=== PATIENT | female | born 1990 | race Caucasian/White ===

== ENCOUNTER 2017-04-29 14:15 | Inpatient (IN) | payer OTHER, SELFPAY ==
[2017-04-29 13:54] VITALS: BMI 41.1
[2017-04-29] MEDS: Lactated Ringers 1,000 ML 50 ML IV (14:55)
[2017-04-29 15:16] LABS: Hematocrit 37.8 % (37-47); Hemoglobin 12.7 g/dl (12.0-15.0); Mean Corp Hgb Conc 33.6 g/gl (32-36); Mean Corpuscular Hgb 29.4 pg (27.0-32.0); Mean Corpuscular Volume 87.5 fL (81-99); Mean Platelet Vol. 9.9 fl (6.2-12.0); Platelet Count 270 K/mm3 (150-450); RBC Distribution Width CV 13.1 % (11.6-14.6); RBC Distribution Width SD 42.4 fl (35.1-43.9); Red Blood Count 4.32 M/mm3 (4.2-5.4); White Blood Count 10.4 K/mm3 (4.4-11.0)
[2017-04-29 15:20] LABS: Scan Indicated on CBC? Y/N NO
[2017-04-29] MEDS: miSOPROStol 25 MCG TABLET VAGINAL ×3 (15:47→23:35)
--- NOTE | 2017-04-29 18:09 | PCM.HP.OB ---
- Problem List (1) Obesity affecting in third trimester Status: Acute (2) IUGR (intrauterine growth restriction) affecting care of mother Status: Acute Qualifiers: Fetus number: single or unspecified fetus Trimester: third trimester Qualified Code(s): O36.5930 - Maternal care for other known or suspected poor growth, third trimester, not applicable or unspecified History Date of Admission: 04/29/17 Final ANALISA: 05/17/17 Final ANALISA Source: US <20 weeks Gestational age: 37 Weeks and 3 Days History of this : Patient is a 26 y/o @ 37.3 weeks by 1st trimester u/s that presented to office today for scheduled DARLINE visit. By Jake's assessment baby felt small on exam, 3rd trimester growth ultrasound ordered and baby was found to be <1% growth with evidence of IUGR. NST performed in office, Category II FHT noted. Consultation with MFM Dr. Josse kennedy, decision made to progress with IOL for presumed IUGR. Pertinent Past Medical History: course complicated by nausea/vomiting in the 1st trimester - resolved with use of Vitamin B6 Otherwise uncomplicated course See [facility] Record Allergies No Known Allergies Allergy (Verified 04/29/17 13:55) Current Medications Acetaminophen (Tylenol) 325 - 650 mg PO Q4H PRN PRN PRN Reason: PAIN OR FEVER >100.4F Al Hydroxide/Mg Hydroxide (Mylanta Ii) 15 - 30 ml PO Q4H PRN PRN PRN Reason: INDIGESTION Citric Acid/Sodium Citrate (Bicitra) 30 ml PO UD PRN Lactated Ringer's () 1,000 mls @ 50 mls/hr IV .Q20H KARIE Last Admin: 04/29/17 14:55 Dose: 50 mls/hr Misoprostol (Cytotec) 25 mcg VAGINAL Q4H KARIE Stop: 04/30/17 11:31 Last Admin: 04/29/17 15:47 Dose: 25 mcg Nalbuphine HCl (Nubain) 5 - 10 mg IV Q3H PRN PRN PRN Reason: PAIN (4-10/10) Ondansetron HCl (Zofran) 4 mg IV Q8H PRN PRN PRN Reason: NAUSEA Promethazine HCl (Phenergan (Ll)) 6.25 - 12.5 mg IV Q4H PRN PRN; Protocol PRN Reason: IF NAUSEA PERSISTS Sodium Chloride () 5 - 15 ml IV UD KARIE Smoking Status: Never smoker Alcohol: None Drug Use: none Number of Fetus(es): 1 Review of Systems Constitutional: Denies: Chills, Fever, Weight Change HEENT: Denies: Head Aches, Sinus Congestion, Sinus Drainage Cardiovascular: Denies: Chest Pain, Palpitations Respiratory: Denies: Cough, Shortness of breath at rest, Sputum production Gastrointestinal: Denies: Abdominal Pain, Nausea, Vomiting Genitourinary: Denies: Dysuria Gynecological: Denies: Vaginal bleeding, Vaginal discharge Musculoskeletal: Denies: Joint Pain, Joint Tenderness Skin: Denies: Rash, Wounds Neurological: Denies: Numbness, Tingling, Focal weakness Psychiatric: Denies: Anxiety, Depression, Homicidal Ideations, Suicidal Ideations Hematologic/ Lymphatic: Denies: Easy Bruising, Easy Bleeding Physical Exam Vitals: See RN note for vital signs - VSS, afebrile FHT baseline 140, moderate variability, + accels currently (On admission Baseline FHT 140, minimal to moderate variability with rare mild variable decels lasting <15-30 seconds, few accels) Ctx uterine irritability noted General: Alert, Oriented x3, No apparent distress Cardiovascular: Regular rate, Regular Rhythm Lungs: Clear to auscultation Abdomen: Bowel Sounds Present, Gravid Extremities:: No edema Estimated gestational size: Small for gestational age Presentation: Cephalic Cervix Dilation (cm): 0 - Per RN exam at admission Station: -3 Effacement (%): 60 Assessment/Plan Active and Suspected Problems Obesity affecting in third trimester (Acute) IUGR (intrauterine growth restriction) affecting care of mother (Acute) A: 26 y/o @ 37.3 weeks, Category I-II FHT, IOL for suspected IUGR P: 1) Admit patient, IOL consent signed with provider 2) PV cytotec given per protocol to help ripen cervix 3) Reassess SVE after 4 hours of 1st dose of Cytotec to assess ability to place vergara catheter with pitocin for additional cervical ripening 4) Encourage PO hydration and position changes 5) Dr. Looney OB back-up notified of admission and is in agreement with plan Amanda Francois CNM
--- NOTE | 2017-04-29 19:51 | PCM.PN.BLA ---
Progress Note S: Patient sitting up in bed denying any complaints or concerns at this time. at bedside providing support for patient. O: VSS, Afebrile FHT baseline 140, moderate variability, + accels, rare mild variable decels with angel to 115-120 x 10-30 seconds Ctx uterine irritability noted SVE = 1/60/-2, midposition, moderate firmness A: 26 y/o @ 37.3 weeks, IOL for IUGR with EFW < 1%, Category I-II FHT P: 1) 2nd dose cytotec placed by this provider for additional cervical ripening 2) Reassess cervix in 4 hours or PRN, consider placement of vergara catheter with low dose pitocin with next exam if cervix is softer 3) Dr. Looney updated of patient status Amanda IRENE
[2017-04-29] MEDS: Acetaminophen 325 MG Tablet PO (23:15)
[2017-04-30] VITALS (15 sets, daily range): BP systolic 101–127; BP diastolic 56–81; PULSE 65–73; RESP 16–18; TEMP 36.5–37; O2SAT 95–100
--- NOTE | 2017-04-30 03:32 | PCM.PN.BLA ---
Progress Note S: 3rd dose of PV Cytotec was placed around 11:30pm, baby had a Category I FHT at that time. Page received from nursing staff to evaluate heart tones, repetitive mild to moderate decelerations noted with perceived decreased variability noted by nursing staff. CNM to evaluate tracing. O: VSS, Afebrile FHT baseline 150, mild to moderate variability, + accels, occasional mild to moderate variable decel with angel to 110-130 auscultated x 30 seconds with spontaneous recovery following 500cc fluid bolus and position changes. Copious FM can be heard during external monitoring. Ctx uterine irritability noted on tocometer, per patient more regular cramping q 4-5 minutes that she rates a 3-4/10 SVE = 2/70/-1 now during ctx, otherwise station -2 A: 26 y/o @ 37.4 weeks, IOL for suspected IUGR (EFW <1%), Category II FHT P: 1) Will hold cytotec dosing at this time and expectantly manage patient currently 2) With resolution of variable decels will consider starting IV pitocin, anticipate AROM with placement of internal monitoring once able to place. 3) Encourage position changes - H+K, side-lying to help resolve variable decels Amanda IRENEM
[2017-04-30] MEDS: Lactated Ringers 1,000 ML 50 ML IV ×2 (03:34→09:33)
--- NOTE | 2017-04-30 06:59 | PCM.PN.BLA ---
Progress Note S: Patient currently Rt. side-lying position - patient positions have been shifted frequently back to H+K for improvement/resolution of mild to moderate variable decels. Patient reports cramping q 4 minutes. remains at bedside providing support for patient. O: VSS, Afebrile FHT baseline 150 mild to moderate variability, + accels , occasional variable decels with angel to 100-120 with spontaneous recovery. Decels occuring most often during a palpable contraction Ctx few noted on tocometer, mild to moderate by palpation q 4-5 minutes SVE = deferred A: 26 y/o @ 37.4 weeks, IOL for Suspected IUGR (EFW <1%), Category II FHT P: 1) Report given to Anuel Looney MD oncoming physician 2) Anticipate placement of internal monitors to help monitor baby more closely with possibility of starting amnioinfusion 3) Consider pitocin augmentation per protocol to help progress labor Amanda Francois CNM
--- NOTE | 2017-04-30 08:03 | PCM.PN.BLA ---
Progress Note Addendum: Decision made to reevaluate cervix, IUPC and FSE placed. Cervix still /, AROM for scant clear fluid. Anticipate will start Amnioinfusion at this time for repetitive variable decels. Category II FHT continues at this time. Dr. Looney appraised of status. Amanda Francois [facility]
--- NOTE | 2017-04-30 08:07 | PN_ITS ---
Progress Note Addendum: Decision made to reevaluate cervix, IUPC and FSE placed. Cervix still /, AROM for scant clear fluid. Anticipate will start Amnioinfusion at this time for repetitive variable decels. Category II FHT continues at this time. Dr. Looney appraised of status. Amanda Francois [facility]
[2017-04-30] MEDS: Amnioinfusion- 0.9% NS 1,000 ML IV.SOLN. INTRA-UTER (08:26)
--- NOTE | 2017-04-30 08:32 | PCM.PN.BLA ---
Progress Note S: Patient denies complaints O: cvx - deferred d/t recent exam fhts 150 with minimal to moderate variability, occ accels, variables tocos - Q2-4 minutes A&P: continue amnioinfusion plan to start pitocin
[2017-04-30] MEDS: Oxytocin 30 units/NS 500 ml 30 UNITS/500 ML IV.SOLN IV (09:46)
[2017-04-30] MEDS: Ondansetron 4 MG/2 ML Vial IV (12:08)
--- NOTE | 2017-04-30 13:24 | PCM.PN.BLA ---
Progress Note Patient comfortable with epidural cvx /-2 fhts 150 with mod variability, variables, occ accels category 2 tracing tocos Q2-3 min A&P: cont pit & will increase when able If unable to obtain adequate labor & fetus tolerate it then will proceed with primary , patient aware & agrees with plan
[2017-04-30] MEDS: Sodium Citrate/Citric Acid 30 ML UDC PO (14:01)
[2017-04-30] MEDS: Oxytocin 30 units/NS 500 ml 30 UNITS/500 ML IV.SOLN 167 UNITS IV (14:24)
[2017-04-30] MEDS: Ketorolac 30 MG/ML Syringe IV ×2 (15:00→20:57)
--- NOTE | 2017-04-30 15:18 | OP.PCM_ITS ---
Delivery Final ANALISA: 05/17/17 Gestational age: 37 Weeks and 4 Days Indications: IUGR Inability of fetus to tolerate labor Indications for : Nonreassuring Status Description of Procedure: Patient taken to OR where epidural anesthesia was dosed. She was prepped and draped in normal sterile fashion in a dorsal lithotomy position with a leftward tilt. After ensuring adequacy of anesthesia the Pfannensteil skin incision was made and carried through to the underlying fascia with a bovie. The fascia was incised in the midline and carried laterally with the Patel scissors. The rectus muscles were in the midline and the peritoneum was entered bluntly. The bladder flap was dissected down carefully with the Metzenbaum scissors and blunt dissection. The uterus was incised in a transverse fashion and then incision extended with cephalocaudad traction. The fetus was vertex and the head was brought to the incision in the flexed position. With good fundal pressure the head easily delivered. Gentle traction placed on head to allow delivery of anterior & posterior shoulders. No excess traction placed on head. The body delivered easily. The 3VC cord was clamped and cut after 1 minute delay and the infant handed off to the waiting RN. The placenta was delivered w/ gentle traction and fundal massage and the uterus was exteriorized and cleared of all clots and debris. The uterine incision was closed with 1 vicryl suture in a running locked fashion. The bovie was used to further obtain further hemostasis of the uterine incision. A second imbricating layer of monocryl was placed. The uterus was returned to the peritoneal cavity. The pelvis was irrigated & then cleared of all clots and debris. The uterine incision was reexamined and found to be hemostatic. Some charlette was placed over the uterine incision due to the denuded areas. The parietal peritoneum was reapproximated with running 1 vicryl suture. The fascia was closed with looped PDS suture in a running standard fashion. The subcutaneous tissue was examined & any bleeding bovie cauterized. The subcutaneous tissue was reapproximated with 3-0 vicryl suture. The skin was closed in a subcuticular fashion by the TURNTABLE ENGINEER with me present in the labor and delivery suite. I performed the remainder of the procedure w/ assistance. FINDINGS: normal maternal uterus & adnexa; small placenta & thin umbilical cord Amniotic Membrane Rupture Type: Artificial Amniotic Fluid Description: Clear Placenta Disposition: [facility] Drain: Mendez to straight drain Fluids Replaced: 500ml Cord Entanglement: None Cord Vessel Description: 3 Vessels Esitmated Blood Loss (ml): 800ml (1 minute): 8 (5 minute): 9 Delayed cord clamping: Yes Pre-op Antibiotic Given: Ancef 2 grams IV x1
--- NOTE | 2017-04-30 15:40 | NURSING ---
Epidural cath removd per elizabeth glass - blue tip intact
[2017-04-30] MEDS: Lactated Ringers 1,000 ML 100 ML IV (17:19)
[2017-05-01] VITALS (13 sets, daily range): BP systolic 102–112; BP diastolic 48–70; PULSE 62–78; RESP 16–20; TEMP 36.1–36.6; O2SAT 97–100
[2017-05-01] MEDS: Ketorolac 30 MG/ML Syringe IV ×3 (02:49→14:33)
[2017-05-01] MEDS: Lactated Ringers 1,000 ML 100 ML IV (02:49)
[2017-05-01 04:53] LABS: Hematocrit 34.4 % (37-47); Hemoglobin 11.5 g/dl (12.0-15.0); Mean Corp Hgb Conc 33.4 g/gl (32-36); Mean Corpuscular Hgb 29.6 pg (27.0-32.0); Mean Corpuscular Volume 88.4 fL (81-99); Mean Platelet Vol. 9.8 fl (6.2-12.0); Platelet Count 212 K/mm3 (150-450); RBC Distribution Width CV 13.3 % (11.6-14.6); RBC Distribution Width SD 42.4 fl (35.1-43.9); Red Blood Count 3.89 M/mm3 (4.2-5.4); White Blood Count 12.3 K/mm3 (4.4-11.0)
[2017-05-01 04:56] LABS: Scan Indicated on CBC? Y/N NO
--- NOTE | 2017-05-01 08:22 | PCM.PN.OB ---
Patient Problems: Active and Suspected Problems Obesity affecting in third trimester (Acute) IUGR (intrauterine growth restriction) affecting care of mother (Acute) Subjective: No complaints - Physical Exam General: Alert, Oriented x3 Abdomen: Soft, Non Tender, Non-Distended - ff mid & below umb; incision - bandage c/d/i Extremities: No Calf Tenderness Vital Signs Temp Pulse Resp BP Pulse Ox 97.8 F 70 18 106/55 L 97 05/01/17 04:14 05/01/17 06:41 05/01/17 06:41 05/01/17 04:14 05/01/17 06:41 Oxygen Delivery Method Room Air Weight: 240 lb Body Mass Index (BMI) 41.1 Intake and Output for Last 24 Hours 04/29/17 04/30/17 05/01/17 23:59 23:59 23:59 Intake Total 730 / 730 3089 / 3089 679 / 679 Output Total 850 / 850 2050 / 2050 550 / 550 Balance -120 / -120 1039 / 1039 129 / 129 Laboratory Tests Past 24 Hrs 05/01/17 04:25 WBC 12.3 H RBC 3.89 L Hgb 11.5 L Hct 34.4 L MCV 88.4 MCH 29.6 MCHC 33.4 RDW 13.3 RDW Differential 42.4 Plt Count 212 MPV 9.8 Assessment/Plan Active and Suspected Problems Obesity affecting in third trimester (Acute) IUGR (intrauterine growth restriction) affecting care of mother (Acute) POD#1 Heme - HDS, cbc reviewed IF - AF, no signs/symptoms infection - d/c vergara GI - ADAT Routine care
--- NOTE | 2017-05-01 08:26 | DCINST_ITS ---
Discharge Diet: No Restrictions Discharge Activity: May not drive while taking narcotic pain medications., May Shower May resume sexual activity in: 4-6 weeks Weight Bearing Status: Weight bearing as tolerated Call your doctor if your incision/area has: Continuous Slow Oozing, Sudden Increased Bleeding, Increased Pain/ Swelling, Increased Redness, Foul Smelling Discharge, Swelling at the incision site Additional Instructions: If you experience any of the following, contact your healthcare provider. * Bleeding that soaks a pad every hour for 2 hours * Fever 100.4 or higher * Unrelieved incision or abdominal pain * Swelling, redness, discharge or bleeding from your incision or episiotomy site * Your incision begins to separate * Problems urinating (including inability to urinate or burning while urinating) . * Visual changes * Severe headache * Flu-like symptoms * Pain or redness in one of both of your breasts * Pain, warmth, tenderness or swelling in your legs, especially the calf area * Frequent nausea and vomiting * Symptoms of depression or anxiety If you experience any of the following, call 911 or go to the nearest Emergency Room. * Chest pain * Problems breathing * Seizure activity * Partial or complete paralysis of a body part, slurred speech, weakness or drooping of the face, or a sudden inability to walk or hold your balance Allergies/Adverse Reactions: Allergies No Known Allergies Allergy (Verified 04/29/17 13:55) Medications to take at Discharge Vits [Prenatabs FA ] 1 tablet PO DAILY 04/29/17 Oxycodone HCl/Acetaminophen [Percocet 5/325] 1 tab PO Q6H PRN PRN 7 Days #28 tab 05/01/17 The following prescriptions were given: Oxycodone HCl/Acetaminophen [Percocet 5/325] 1 tab PO Q6H PRN PRN 7 Days #28 tab PRN Reason: Pain Follow-Up: Call to make an appointment with your doctor for an incision check in 1-2 weeks. You will also need a 6 week post- follow up appointment. Primary Care Physician: Care Physician,No Primary [Primary Care Provider] -
[2017-05-01] MEDS: 0.9% Saline Lock 10 ML Syringe IV ×2 (09:15→14:34)
[2017-05-01] MEDS: Senna/Docusate Sodium 1 Tablet PO (11:33)
[2017-05-01] MEDS: oxyCODONE 5 MG Tablet PO (20:15)
[2017-05-01] MEDS: Ibuprofen 600 MG Tablet PO (21:08)
[2017-05-02 02:49] VITALS: BP 124/64; PULSE 80; RESP 16; TEMP 36.4; O2SAT 98
[2017-05-02] MEDS: oxyCODONE 5 MG Tablet PO ×4 (04:47→19:29)
[2017-05-02] MEDS: Ibuprofen 600 MG Tablet PO ×3 (07:45→22:50)
[2017-05-02] MEDS: Senna/Docusate Sodium 1 Tablet PO (07:46)
[2017-05-02 08:16] VITALS: BP 114/64; PULSE 69; RESP 18; TEMP 37.1; O2SAT 97
--- NOTE | 2017-05-02 08:22 | PCM.PN.OB ---
Patient Problems: Active and Suspected Problems Obesity affecting in third trimester (Acute) IUGR (intrauterine growth restriction) affecting care of mother (Acute) Subjective: pain well controlled, average lochia. stacy. regular diet. No N/V. + flatus, no BM - Physical Exam General: Alert, Cooperative, No apparent distress Abdomen: Soft, Non-Distended, Tender - appropriately Extremities: Edema - 1+ Skin: Incision - clean, dry and intact Vital Signs Temp Pulse Resp BP Pulse Ox 98.8 F 69 18 114/64 97 05/02/17 08:16 05/02/17 08:16 05/02/17 08:16 05/02/17 08:16 05/02/17 08:16 Oxygen Delivery Method Room Air Weight: 108.862 kg Body Mass Index (BMI) 41.1 Intake and Output for Last 24 Hours 04/30/17 05/01/17 05/02/17 23:59 23:59 23:59 Intake Total 3089 / 3089 679 / 679 Output Total 2049 / 2049 2550 / 2550 Balance 1039 / 1039 -1871 / -1871 Assessment/Plan Active and Suspected Problems Obesity affecting in third trimester (Acute) IUGR (intrauterine growth restriction) affecting care of mother (Acute) POD#2 doing well pumping, infant in SCN. Likely d/c to hot tomorrow
[2017-05-02 13:38] VITALS: BP 114/78; PULSE 95; RESP 18; TEMP 36.4; O2SAT 98
[2017-05-02 19:40] VITALS: BP 117/78; PULSE 98; RESP 16; TEMP 37.1; O2SAT 99
[2017-05-03 02:30] VITALS: BP 121/78; PULSE 82; RESP 16; TEMP 36.5; O2SAT 97
[2017-05-03] MEDS: oxyCODONE 5 MG Tablet PO ×2 (02:32→14:59)
[2017-05-03] MEDS: Ibuprofen 600 MG Tablet PO ×2 (05:57→12:12)
[2017-05-03 08:00] VITALS: BP 122/72; PULSE 71; RESP 16; TEMP 36.7; O2SAT 97
--- NOTE | 2017-05-03 08:52 | PCM.PN.BLA ---
Progress Note S: Patient sitting up in bed eating breakfast. Patient reports no issues. Incisional pain minimal, patient's pain well controlled and she is not using narcotic pain pills regularly anymore. Patient reports her milk has come in, patient pumping q 3 hours currently as baby in special care nursery due to blood sugar instability. O: VSS, Afebrile Nipples without cracks, blisters, ecchymoses or erythema Abdomen NT x 4 quadrants, Dressing Dry and Intact, FF midline @ 3FB below umbilicus +2/4 reflexes in LE, no edema in LE, negative calf tenderness to palpation scant rubra lochia A: 26 y/o s/p LTCS for FIOL, POD #3, Normal Course P: 1) As baby will be staying in [facility], anticipate discharge of patient today. Hospitality room available. 2) Anticipatory PP teaching done today 3) Patient to remove dressing on POD 4 or 5, instructions for removal provided 4) Post-op follow-up visit with [facility] by 2 weeks PP, and then additional PP visit by 6 week PP. Amanda Francois CNM
--- NOTE | 2017-05-03 09:01 | PN_ITS ---
Progress Note S: Patient sitting up in bed eating breakfast. Patient reports no issues. Incisional pain minimal, patient's pain well controlled and she is not using narcotic pain pills regularly anymore. Patient reports her milk has come in, patient pumping q 3 hours currently as baby in special care nursery due to blood sugar instability. O: VSS, Afebrile Nipples without cracks, blisters, ecchymoses or erythema Abdomen NT x 4 quadrants, Dressing Dry and Intact, FF midline @ 3FB below umbilicus +2/4 reflexes in LE, no edema in LE, negative calf tenderness to palpation scant rubra lochia A: 26 y/o s/p LTCS for FIOL, POD #3, Normal Course P: 1) As baby will be staying in [facility], anticipate discharge of patient today. Hospitality room available. 2) Anticipatory PP teaching done today 3) Patient to remove dressing on POD 4 or 5, instructions for removal provided 4) Post-op follow-up visit with [facility] by 2 weeks PP, and then additional PP visit by 6 week PP. Amanda Francois CNM
--- NOTE | 2017-05-03 10:44 | NURSING ---
Talked with mother about pumping and shield use. Mother will continue to pump after nursing at this time for 10-15 min and supplement being done in SCN. Talked with mother she will still be pumping after feeds until milk supply in and baby gaining appropriately. She will see her shaper operator the next day after baby discharged and then we will schedule an outpatient visit for two days after visit with shaper operator. Depending on her supply we talked about she probably will be pumping through week 1 and 2 for that extra for infant and this will be monitored through her peds office visits and outpatient visits. Also weights will need to be monitored while using nipple shield. Discussed precautions with nipple shield and to continue trying at times to nurse without shield. Continue demand feeding /(every 2-3 hours) and continue feeding log and monitor wets and stools when at home for the first month at least. Encouraged Mother will continue to need to feed at night 2x a night for first few months and to keep her prolactin levels up and supply in. Encouraged night time feedings will continue to some extent for first 6 months. Discussed pumping when she returns to her classes to try to pump every 3 hours while gone from infant. The amount baby needs will be determined by her follow up shaper operator visits at that time. Will monitor for oversupply and signs and symptoms of mastitis are taught. Education sheet provided.
[2017-05-03] MEDS: Senna/Docusate Sodium 1 Tablet PO (12:13)
[2017-05-03 14:50] VITALS: BP 134/84; PULSE 70; RESP 16; TEMP 36.8; O2SAT 98
--- NOTE | 2017-05-06 12:05 | PCM.DC.BLA ---
Discharge Summary Date of Admission: 04/29/17 Date of Discharge: 05/03/17 Summary: Patient admitted for IOL for Category II FHT in office and EFW <1%ile. FIOL to labor noted and patient had primary LTCS without complication on 04/30/17. course uneventful. Patient discharged to home in stable condition. Amanda Francois CNM
== END 2017-05-03 17:40 | disposition home or self-care (01) | DRG 765 ==
LOC: WPOUT 14:20
PROVIDERS: Obstetrics & Gynecology; Admitting Provider Obstetrics & Gynecology; Visit Provider Obstetrics & Gynecology
DX: O76 Abnormality in fetal heart rate and rhythm complicating labor and delivery (principal); Z68.41 Body mass index [BMI] 40.0-44.9, adult; O36.5930 Maternal care for other known or suspected poor fetal growth, third trimester, not applicable or unspecified; E66.9 Obesity, unspecified; Z37.0 Single live birth; O99.214 Obesity complicating childbirth; Z3A.37 37 weeks gestation of pregnancy
CPT/HCPCS: 59025; 59050; 85027; 86850; 86900; 99218; J7030; J7120; A4216; G0378; J2405

== ENCOUNTER 2018-09-23 20:01 | Emergency (ER) | payer OTHER, SELFPAY ==
[2018-09-23 20:02] VITALS: BP 130/92; PULSE 87; RESP 17; TEMP 36.2; O2SAT 98; BMI 34.9
[2018-09-23 21:08] LABS: Absolute Lymphocyte Count 0.91 X10^3/uL (0.83-4.51); Absolute Neutrophil Count 5.9 X10^3/uL (2.0-7.7); Basophil# 0.03 X10^3/uL; Basophil% 0.4 % (0-1); Eosinophil# 0.01 X10^3/uL; Eosinophils% 0.1 % (0-5); Hematocrit 42.5 % (37-47); Hemoglobin 14.6 g/dL (12.0-15.0); Lymphocyte # 0.91 X10^3/ul (4.0); Lymphocyte % 12.5 % (19-41); Mean Corp Hgb Conc 34.4 g/dL (32-36); Mean Corpuscular Hgb 28.8 pg (27.0-32.0); Mean Corpuscular Volume 83.8 fL (81-99); Mean Platelet Vol. 10.4 fl (6.2-12.0); Monocyte# 0.46 X10^3/uL; Monocyte% 6.3 % (0-10); NRBC Flagged by Analyzer 0 % (0-5); Neutrophil # 5.85 X10^3/uL (2.7-7.7); Neutrophil % 80.3 % (47-70); Platelet Count 237 K/mm3 (150-450); RBC Distribution Width CV 12.6 % (11.6-14.6); RBC Distribution Width SD 37.5 fl (35.1-43.9); Red Blood Count 5.07 M/mm3 (4.2-5.4); White Blood Count 7.3 K/mm3 (4.4-11.0)
[2018-09-23 21:13] LABS: Anion Gap 9 (5-15); BUN 4 mg/dL (7-18); BUN/Creat Ratio 7.8 RATIO (10-20); Calcium,Total 8.8 mg/dL (8.5-10.1); Chloride 107 mmol/L (98-107); Creatinine, Serum 0.51 mg/dL (0.55-1.02); EST Glomerular Filtration Rate 149 mL/min (>60); Est Glom Filt Rate - Afr Amer 181 mL/min (>60); Estimated Creatinine Clearance 139.28 ml/min; Glucose 76 mg/dL (74-106); Potassium 3.5 mmol/L (3.5-5.1); Sodium Level 137 mmol/L (136-145)
[2018-09-23] MEDS: 0.9% Normal Saline 1,000 ML 1000 ML IV (21:18)
[2018-09-23] MEDS: Metoclopramide 10 MG/2 ML Vial IV (21:18)
[2018-09-23] MEDS: Dextrose 5%-Lactated Ringers 1,000 ML 250 ML IV (21:50)
--- NOTE | 2018-09-23 23:06 | ED.DCSUM_ITS ---
- ER Visit Summary Date of Service: 09/23/18 Chief Complaint: and vomiting History of Present Illness: The patient is a 28 F who [facility]. She saw Glenda Gee today. She is a G2, P1 at 10 weeks . She reports that over the past 3 days she is been vomiting 50-20 times per day. No blood or emesis. She denies abdominal pain or diarrhea. No dysuria. She reports that she had a UA in the office today. She denies any fever, chills, or other complaints. Physical Examination: Vitals: Stable. Afebrile. General: Well-nourished and well-developed. Head: Normocephalic atraumatic. Neck: Supple, no lymphadenopathy. No JVD. Nontender. Cardiovascular: Regular rate and rhythm. No murmurs. Respiratory: No respiratory distress. Clear to auscultation bilaterally. Abdominal: Soft, nontender, nondistended, normal bowel sounds. No guarding, rebound, or peritoneal signs. Gravid uterus. Back: Nontender. Extremities: Nontender, no edema. Skin: Normal color, no rash. Neurologic: Alert and oriented ?3. Cranial nerves II through XII are intact. Normal strength and sensation. Psych: Normal affect. Test Results: CBC shows segmented neutrophils of 80 lymphs of 13. Chem-7 shows a BUN of 4 and creatinine of 0.51. Emergency Department Course and Treatment: Patient was given a dose of Reglan and Zofran IV. She was given a liter of normal saline and then started on D5 LR at 250 cc/h. She feels much improved and has not vomited while here. Treatment Plan: Patient will be discharged on Zofran and Reglan. Instructed to follow-up with her testing coordinator in 1 to 2 days if not improving. Return to the emergency department for any worsening symptoms. Disposition: To home in improved and stable condition. Impression: 1. Vomiting. 2. First trimester . This note was generated with [employer] dictation software. It may contain incorrect words, spelling, and punctuation that were not noted in review of the chart prior to signing ED Disposition - Plan for ED Patient: Disposition: Home or Assisted Living Instructions: Hyperemesis Gravidarum Prescriptions: Metoclopramide [Reglan] 10 mg PO 4X/DAY PRN #20 tab PRN Reason: Headache Prescription Printed Ondansetron [Zofran Odt] 4 mg PO Q8H PRN PRN #10 tab PRN Reason: Nausea Prescription Printed Referrals: Glenda Gee CNM [Certified Nurse Healthcare Insurance Sales Agent] - 1-2 Days if not improving
[2018-09-23] MEDS: Ondansetron 4 MG/2 ML Vial IV (23:29)
[2018-09-23 23:59] VITALS: BP 115/68; PULSE 77; RESP 18; O2SAT 97
== END 2018-09-24 | disposition home or self-care (01) ==
PROVIDERS: Emergency Provider Emergency Medicine
DX: O21.9 Vomiting of pregnancy, unspecified (principal); Z3A.10 10 weeks gestation of pregnancy
CPT/HCPCS: 80048; 85025; 96361; 96374; 96375; 99284; J7030; A4216; J2405

== ENCOUNTER 2018-09-30 20:16 | Emergency (ER) | payer OTHER, SELFPAY ==
[2018-09-30 20:17] VITALS: BP 115/86; PULSE 105; RESP 20; TEMP 36; O2SAT 98; BMI 33.8
--- NOTE | 2018-09-30 21:02 | ED.VIS.GEN ---
History of Present Illness Chief Complaint: Nausea/Vomiting Informant: Patient, Significant Other Onset: Days Context: Sudden Onset Timing: Intermittent, Waxes and wanes Quality: Nausea and vomiting Location: GI Current Severity: Moderate Maximum Severity: Severe Worsened by: Relieved by: Nothing Associated Symptoms: Thirst, dry mouth and decreased urine output Narrative: Patient is a 28-year-old G2, P1 female who presents because of nausea and vomiting. She is approximately 11 weeks gestation. She was placed on a Zofran pump yesterday. She continues to vomit. She was seen last week and treated with Reglan. She states she has attempted to take Reglan however vomits the medication after taking. She denies fever, chills night sweats. She denies cardiac respiratory symptoms. She has no other complaints Prior similar symptoms: Yes Recent Illness/Hospitalization: Yes - Past Medical History (1) IUGR (intrauterine growth restriction) affecting care of mother Status: Acute (2) Obesity affecting in third trimester Status: Acute Past Medical History - Allergies and Home Meds Allergies/Adverse Reactions: Allergies No Known Allergies Allergy (Verified 09/30/18 20:17) Primary Care Physician: Care Physician,No Primary [Primary Care Provider] - Prior records reviewed: Yes Lives: Spouse/ Significant Other, With Family Smoking Status: Never smoker Alcohol: Rare Drugs: None Review of Systems General: Denies: Chills, Fever, Sweats Eyes: Denies: Visual changes - bilaterally, Blurred Vision - bilaterally, Diplopia ENT: Denies: Rhinorrhea, Sore throat Cardiovascular: Denies: Chest pain, Palpitations Respiratory: Denies: Dyspnea, Cough, Dyspnea on exertion Gastrointestinal: Reports: Nausea, Vomiting. Denies: Abdominal pain, Diarrhea, Constipation, Melena, Hematochezia, -, - Genitourinary: Denies: Dysuria, Hematuria, Frequency Musculoskeletal: Denies: Myalgias, Arthralgias, Neck pain, Back pain, Swelling, Extremity Pain Skin: Denies: Rash, Wounds Neurological: Denies: Headache, Weakness, Numbness Hematologic: Denies: Easy bruising, Easy bleeding Allergy: Denies: Uticaria, Swelling of the mouth Physical Exam Vital Signs/Narrative: Vital Signs Temp Pulse Resp BP Pulse Ox 09/30/18 20:17 96.8 F L 105 H 20 H 115/86 H 98 General: Well nourished, Well developed, No Acute Distress Head: Normocephalic, Atraumatic Eyes: Perrl, EOMI ENT: No rhinorrhea, TM's clear, Dry mucous membranes Neck: Supple, Nontender Cardiovascular: Regular rate, Regular rhythm, No murmurs Respiratory: No distress, CTA bilaterally, Chest nontender Abdomen: Soft, Nontender, Nondistended, Normal bowel sounds Rectal: Deferred Back: Nontender, Normal Inspection. Negative for: CVA tenderness Extremities: Nontender, No edema Skin: Normal color, No rash Neurological: Alert, Oriented x3, Cranial nerves II-XII grossly intact, Normal Strength, Normal Sensation Psychological: Normal affect, Normal Mood Diagnostic/Tx/Re-eval Laboratory Results 09/30/18 09/30/18 21:15 21:20 Sodium 135 L Potassium 3.1 L Chloride 103 Carbon Dioxide 22.0 Anion Gap 10 BUN 6 L Creatinine 0.60 Estim Creat Clear Calc 118.39 Est GFR (MDRD) Af Amer 151 Est GFR (MDRD) Non-Af 125 BUN/Creatinine Ratio 10.0 Glucose 93 Calcium 9.2 Urine Color Elke Urine Clarity Clear Urine pH 6.5 Ur Specific [place] 1.020 Urine Protein 30 H Urine Glucose (UA) Normal Urine Ketones 150 H Urine Occult Blood Negative Urine Nitrite Positive H Urine Bilirubin 3 H Urine Urobilinogen 12 H Ur Leukocyte Esterase 100 H Urine RBC 0 SEEN Urine WBC 0-5 SEEN Ur Squamous Epith Cells 0-5 SEEN Urine Bacteria 1+ Urine Mucus 0 SEEN Electrode panel is remarkable for slight decrease in potassium 3.1. Urine is remarkable for ketones, nitrites, leukoesterase and negative for blood. Micro reveals 0 RBCs, 0-5 WBCs and 0-5 squamous epithelial cells with 1+ bacteria. This is a nondiagnostic urinary sample. Suspect this is secondary to her dehydration. - Medical Decision Making Clinically patient is dehydrated. She received 10 mg of Reglan. Will obtain basic metabolic panel to assess renal function and urine to assess for ketones. Ketones noted in urine. There is bacteria without evidence of infection. Since she is we will send urine culture. Potassium is 3.1 which is slightly low. If patient passes p.o. challenge will discharge to home. Patient has passed p.o. challenge. Will discharge to home. ED Disposition - Plan for ED Patient: Disposition: Home or Assisted Living Diagnosis: Hyperemesis gravidarum, Dehydration, Ketosis Instructions: Hyperemesis Gravidarum (Severe Morning Sickness) Referrals: Care Physician,No Primary [Primary Care Provider] - Linda Tyler MD [STAFF PHYSICIAN] - 1-2 Days if not improving
[2018-09-30] MEDS: 0.9% Normal Saline 1,000 ML 1000 ML IV (21:22)
[2018-09-30] MEDS: Metoclopramide 10 MG/2 ML Vial IV (21:22)
[2018-09-30 21:26] LABS: Mucous, Urine 0 SEEN /hpf (<or=2+); Red Blood Cells-Urine 0 SEEN /hpf (0-5)
[2018-09-30 21:28] LABS: Color, Urine Amber (Yellow); Glucose, Dipstick Normal (Normal); Leukocyte Esterase-Dipstick 100 /ul (Negative); Nitrite-Dipstick Positive (Negative); Occult Blood-Urine Negative /ul (Negative); Protein-Dipstick 30 mg/dl (Negative); Urine Clarity Clear (Clear); Urine Urobilinogen 12 mg/dl (Normal); Urine pH 6.5 (5.0 - 8.0)
[2018-09-30 21:46] LABS: Anion Gap 10 (5-15); BUN 6 mg/dL (7-18); Calcium,Total 9.2 mg/dL (8.5-10.1); Chloride 103 mmol/L (98-107); EST Glomerular Filtration Rate 125 mL/min (>60); Est Glom Filt Rate - Afr Amer 151 mL/min (>60); Estimated Creatinine Clearance 118.39 ml/min; Glucose 93 mg/dL (74-106); Potassium 3.1 mmol/L (3.5-5.1); Sodium Level 135 mmol/L (136-145)
[2018-09-30 21:47] LABS: Urine Bilirubin Dipstick 3 mg/dL (Negative)
[2018-09-30 21:48] LABS: Bacteria 1+ /hpf (None Seen); Ketone-Dipstick 150 mg/dl (Negative); Squamous Epithelial Cells - UA 0-5 SEEN /hpf (5-10); White Blood Cells 0-5 SEEN /hpf (0-5)
--- NOTE | 2018-09-30 21:49 | ED.RN ---
DR GAYLE NOTIFIED OF KETONES
[2018-09-30 23:57] VITALS: BP 127/80; PULSE 83; RESP 16; O2SAT 96
== END 2018-09-30 23:58 | disposition home or self-care (01) ==
PROVIDERS: Emergency Provider Emergency Medicine
DX: O21.0 Mild hyperemesis gravidarum (principal); O99.281 Endocrine, nutritional and metabolic diseases complicating pregnancy, first trimester; E86.0 Dehydration; E88.89 Other specified metabolic disorders; O99.211 Obesity complicating pregnancy, first trimester; E66.9 Obesity, unspecified; O36.5910 Maternal care for other known or suspected poor fetal growth, first trimester, not applicable or unspecified; Z3A.11 11 weeks gestation of pregnancy
CPT/HCPCS: 80048; 81001; 87086; 87088; 99283; J7030; A4216

== ENCOUNTER 2018-10-04 13:03 | Emergency (ER) | payer OTHER, SELFPAY ==
[2018-10-04 13:05] VITALS: BP 93/72; PULSE 82; RESP 16; TEMP 35.8; O2SAT 100; BMI 33.9
[2018-10-04] MEDS: 0.9% Normal Saline 1,000 ML 1000 ML IV ×2 (14:00→15:17)
[2018-10-04 14:15] LABS: Bedside Glucose 82 mg/dL (70-110)
[2018-10-04 14:21] LABS: Red Blood Cells-Urine 0 SEEN /hpf (0-5)
[2018-10-04 14:23] LABS: Color, Urine Amber (Yellow); Glucose, Dipstick Normal (Normal); Leukocyte Esterase-Dipstick 100 /ul (Negative); Nitrite-Dipstick Positive (Negative); Occult Blood-Urine 10 /ul (Negative); Protein-Dipstick 30 mg/dl (Negative); Urine Clarity Clear (Clear); Urine Urobilinogen 12 mg/dl (Normal); Urine pH 6.5 (5.0 - 8.0)
[2018-10-04 14:27] LABS: Urine Bilirubin Dipstick 6 mg/dL (Negative)
[2018-10-04 14:34] LABS: Ketone-Dipstick 150 mg/dl (Negative)
[2018-10-04 14:37] LABS: Squamous Epithelial Cells - UA 5-10 SEEN /hpf (5-10); White Blood Cells 5-10 SEEN /hpf (0-5)
[2018-10-04 14:38] LABS: Bacteria 2+ /hpf (None Seen); Mucous, Urine 1+ /hpf (<or=2+)
--- NOTE | 2018-10-04 15:13 | ED.DCSUM_ITS ---
- ER Visit Summary Date of Service: 10/04/18 Chief Complaint: Vomiting History of Present Illness: The patient is a 28 F resents the emergency department with vomiting and . She is approximately 12 weeks . . She sees Dr. Mcmahan. She is been seen in the emergency department several times recently for the vomiting. She has a Zofran pump in. She is on every 6 hours Reglan. She states because the Zofran pump home health care coming out regularly checking her urine for ketones. She states for the past several days she is in positive for 3+ ketones. Patient states she does not feel like she is hypoglycemic. Her last episode of vomiting was last night. Physical Examination: Afebrile vital signs show blood pressure 93/72 heart rate of 82 Gen: Well-nourished well-developed Head: Normocephalic atraumatic Eyes: Perrl EOMI ENT: TMs clear no rhinorrhea moist mucous membranes Neck: Supple no lymphadenopathy no JVD nontender CVS: Regular rate rhythm no murmurs normal S1-S2 Respiratory: No distress clear to auscultation bilaterally chest nontender Abdomen: Soft nontender nondistended normal bowel sounds no masses Back: Nontender Extremity: Nontender no edema Skin: Normal color no rash Neuro: alert orientated ?3 CN II-XII intact normal strength sensation reflexes gait cerebellar Psych: Normal affect normal mood Test Results: Accu-Chek of 82. Urinalysis showed 150 ketones. 5-10 white blood cells and 2+ bacteria however there was 5-10 epithelial cells. Emergency Department Course and Treatment: 2 L of IV fluids. She has had p.o. fluids. At this point patient be discharged home. Instructions to follow-up with her rehabilitation aide/scheduler. Impression: 1. Hyperemesis gravidarum 2. First trimester This note was generated with [employer] dictation software. It may contain incorrect words, spelling, and punctuation that were not noted in review of the chart prior to signing ED Disposition - Plan for ED Patient: Disposition: Home or Assisted Living Instructions: Hyperemesis Gravidarum Referrals: Linda Tyler MD [STAFF PHYSICIAN] - Keep Andrew appointment
[2018-10-04 15:14] VITALS: RESP 18
[2018-10-04 16:04] VITALS: BP 92/69; PULSE 72; RESP 17; O2SAT 100
--- NOTE | 2018-10-04 16:04 | ED.RN ---
IV DC'ED, CATHETER INTACT, SMALL GAUZE DRESSING PLACED. DISCHARGE INSTRUCTIONS GIVEN TO AND REVIEWED WITH PATIENT, PATIENT DENIES QUESTIONS OR CONCERNS AND VOICES UNDERSTANDING OF DISCHARGE INSTRUCTIONS. PT AMBULATES OUT OF ROOM WITHOUT ISSUE.
== END 2018-10-04 16:05 | disposition home or self-care (01) ==
PROVIDERS: Emergency Provider Emergency Medicine
DX: O21.0 Mild hyperemesis gravidarum (principal); Z3A.12 12 weeks gestation of pregnancy
CPT/HCPCS: 81001; 82962; 99283

== ENCOUNTER 2019-04-12 05:10 | Inpatient (IN) | payer BC, SELFPAY ==
[2019-04-12] VITALS (20 sets, daily range): BP systolic 89–110; BP diastolic 42–70; PULSE 60–78; RESP 12–18; TEMP 36.3–36.8; O2SAT 96–100; BMI 40.0
[2019-04-12] MEDS: Lactated Ringers 1,000 ML 999 ML IV (05:34)
[2019-04-12 05:59] LABS: Absolute Lymphocyte Count 1.58 X10^3/uL (0.83-4.51); Absolute Neutrophil Count 7.7 X10^3/uL (2.0-7.7); Basophil# 0.06 X10^3/uL; Basophil% 0.6 % (0-1); Eosinophil# 0.13 X10^3/uL; Eosinophils% 1.3 % (0-5); Hematocrit 35.8 % (37-47); Hemoglobin 12.1 g/dL (12.0-15.0); Lymphocyte # 1.58 X10^3/ul (4.0); Lymphocyte % 15.4 % (19-41); Mean Corp Hgb Conc 33.8 g/dL (32-36); Mean Corpuscular Hgb 28.8 pg (27.0-32.0); Mean Corpuscular Volume 85.2 fL (81-99); Mean Platelet Vol. 9.8 fl (6.2-12.0); Monocyte# 0.75 X10^3/uL; Monocyte% 7.3 % (0-10); NRBC Flagged by Analyzer 0 % (0-5); Neutrophil # 7.71 X10^3/uL (2.7-7.7); Neutrophil % 74.9 % (47-70); Platelet Count 274 K/mm3 (150-450); RBC Distribution Width CV 13.4 % (11.6-14.6); RBC Distribution Width SD 41.6 fl (35.1-43.9); White Blood Count 10.3 K/mm3 (4.4-11.0)
[2019-04-12] MEDS: Lactated Ringers 1,000 ML 150 ML IV (06:36)
[2019-04-12] MEDS: Sodium Citrate/Citric Acid 30 ML UDC PO (07:06)
[2019-04-12] MEDS: Cefazolin 2 GM in 0.9% Normal Saline 100 ML IV (07:17)
--- NOTE | 2019-04-12 07:28 | OP.PCM_ITS ---
Report of Operation Surgery/Procedure Performed:: Repeat section with bilateral tubal ligation Description of Surgical Findings:: Normal maternal uterus and adnexa Delivery Classification: Scheduled Final ANALISA: 04/19/19 Gestational age: 39 Weeks and 0 Days student driving instructor: Nayely Medina Type of Anesthesia:: Spinal/Supplemental Date of Procedure: 04/12/19 Pre-Operative Diagnosis: (1) Prior section (2) Desires permanent sterilization Post-Operative Diagnosis: Same Indications for : Repeat Elective , Desires elective sterilization Description of Procedure: Patient taken to OR where spinal anesthesia was placed. She was prepped and draped in the normal sterile fashion in a dorsal supine position with a leftward tilt. After ensuring adequacy (which also required ketamine)of anesthesia the Pfannensteil skin incision was made and carried through to the underlying fascia with a scalpel. The fascia was incised in the midline and carried laterally with the Patel scissors. The rectus muscles were in the midline and the peritoneum was entered bluntly. The bladder flap was dissected down carefully with the Metzenbaum scissors and blunt dissection. The uterus was incised in a transverse fashion and then incision extended with cephalocaudad traction. The fetus was vertex and the head was elevated to the uterine incision. With fundal pressure the head delivered. head was gently guided to allow delivery of anterior and posterior shoulders. No excess traction placed on head. Body delivered and 3VC clamped & cut in delayed fashion. Then the was handed off to the waiting RN. The placenta was delivered with gentle traction and fundal massage and the uterus was exteriorized and cleared of all clots and debris. The uterine incision was closed with 1 vicryl suture in a running locked fashion. The bovie was used to further obtain further hemostasis of the uterine incision. A second imbricating layer of monocryl was placed. The uterus was returned to the peritoneal cavity. Attention then turned to the fallopian tubes. Right fallopian tube grasped with a rosie, doubly suture ligated and tubal segment excised. This procedure was repeat on the left fallopian tube. Tubal ligation sites were both checked and confirmed hemostatic with sutures intact. The pelvis was irrigated & then cleared of all clots and debris. A figure of eight suture was placed on the uterine incision to further obtain excellent hemostasis. The uterine incision was reexamined and found to be hemostatic. Some charlette was placed over the uterine incision due to the denuded areas. The fascia was closed with looped PDS suture in a running standard fashion. 1% lidocaine (10ml) was injected to the skin to provide additional postoperative analgesia. The subcutaneous tissue was examined & any bleeding bovie cauterized. The subcutaneous tissue was reapproximated with plain gut suture. The skin was closed in a subcuticular fashion by the MIXING ENGINEER with me present in the labor and delivery suite. I performed the remainder of the procedure w/ assistance. Amniotic Membrane Rupture Type: Artificial Amniotic Fluid Description: Clear Placenta Disposition: [facility] Specimen(s) sent to pathology: bilateral fallopian tube segments Drain: Mendez to straight drain Fluids Replaced: 1500ml Cord Entanglement: None Cord Vessel Description: 3 Vessels Esitmated Blood Loss (ml): 800ml Infant Gender: Female - Michelle; weight = 5-11 (1 minute): 9 (5 minute): 9 Delayed cord clamping: Yes Antibiotic Given: Ancef 2 grams IV x1 Complications: None - Admit VTE Documentation VTE Present on Admission: No VTE Mechan Device Prophylaxis: SCD's VTE Pharm Prophylaxis ordered?: Yes
--- NOTE | 2019-04-12 09:11 | PCM.HP.OB ---
History Date of Admission: 04/12/19 Final ANALISA: 04/19/19 Final ANALISA Source: US <20 weeks Gestational age: 39 Weeks and 0 Days History of this : This is a 28 year-old, G [], P [], at 39 weeks gestational age. Allergies shellfish derived Allergy (Verified 04/12/19 05:32) Nausea/Vom/Diarrhea Home Medications: Home Medications Vits [Prenatabs FA ] 1 tablet PO DAILY 04/29/17 Ondansetron HCl [Zofran] 4 mg PO 09/30/18 Smoking Status: Never smoker Number of Fetus(es): 1 History Past Pregnancies: Past Pregnancies Delivery Date Name GA/ Weeks Outcome Route Wt Infant Sex Labor Length Anesthesia Delivery Location Provider FOB Labs: See [facility] prenatals Assessment/Plan All Active Problems Obesity affecting in third trimester (Acute) IUGR (intrauterine growth restriction) affecting care of mother (Acute) This is a 28 year-old, G2, P1, at 39 weeks gestational age. Admit to L&D for repeat Please see [facility] H&P
[2019-04-12] MEDS: Lactated Ringers 1,000 ML 100 ML IV (09:16)
[2019-04-12] MEDS: Oxytocin 30 units/NS 500 ml 30 UNITS/500 ML IV.SOLN 167 UNITS IV (09:30)
--- NOTE | 2019-04-12 10:54 | FALS_PTH ---
PATIENT: JHONATHAN ROWELL LOC: [facility] U#:[id number] AGE/SX: 28/F ROOM: WP006 RE04/12/[address]: Dr. Karen Looney MD : 1990 BED: 1 DIS: 04/14/2019 SPEC #: [id number] RECD: 04/12/19 11:32 STATUS: AICHA YULI #: [id number] RENATO: 04/12/19 10:[address]: Karen Looney DEPT: SURGICAL PATHOLOGY RECD BY: Sonny Felton ENTERED: 04/12/19 12:05 SP TYPE: FALL TUBES OTHR DR: Laney Primary Care Phys Tissues: Fallopian tube Procedures: Surgery Specimen Level II HEADER OPERATION: Tubal ligation PRE-OP DIAGNOSIS: Sterilization TISSUE SUBMITTED: Fallopian tubes, right tube tied MICROSCOPIC DIAGNOSIS Right and left fallopian tubes, bilateral salpingectomies: Two complete cross-sections of fallopian tubes with no pathologic change. AM:kobi 04/13/19 MICROSCOPIC DESCRIPTION Slides are reviewed. GROSS DESCRIPTION Received is one container labeled with the patient's name and designated bilateral fallopian tubes, right tube with string. The specimen consists of two tubular pieces of powers soft tissue with the right tube identified by a string. The right fallopian tube measures 1 cm in length and 0.4 cm in diameter. The left fallopian tube measures 0.5 cm in length and 0.4 cm in diameter. The entire specimen is submitted in two cassettes as follows: 1 - right fallopian tube, 2 - left fallopian tube. The right tube will be sectioned at the time of embedding. / SHAYY:kobi 04/12/19 TC: CPT: 87661 x2
[2019-04-12] MEDS: Ketorolac 30 MG/ML Syringe IV ×2 (14:06→20:05)
[2019-04-12] MEDS: Acetaminophen 500 MG Tablet 1000 MG PO (15:28)
[2019-04-12] MEDS: 0.9% Saline Lock 10 ML Syringe IV ×2 (17:22→20:05)
[2019-04-12] MEDS: HYDROmorphone 1 MG/ML Syringe IV (17:22)
[2019-04-12] MEDS: Enoxaparin 40 MG/0.4 ML Syringe SC (20:05)
[2019-04-13] VITALS (7 sets, daily range): BP systolic 82–107; BP diastolic 44–59; PULSE 64–78; RESP 16–18; TEMP 35.8–36.8; O2SAT 96–98
[2019-04-13] MEDS: 0.9% Saline Lock 10 ML Syringe IV ×4 (02:40→14:07)
[2019-04-13] MEDS: Ketorolac 30 MG/ML Syringe IV ×3 (02:40→14:07)
[2019-04-13 04:44] LABS: Hematocrit 29.4 % (37-47); Hemoglobin 9.7 g/dL (12.0-15.0); Mean Corpuscular Hgb 28.5 pg (27.0-32.0); Mean Corpuscular Volume 86.5 fL (81-99); Mean Platelet Vol. 9.8 fl (6.2-12.0); Platelet Count 228 K/mm3 (150-450); RBC Distribution Width CV 13.8 % (11.6-14.6); RBC Distribution Width SD 42.7 fl (35.1-43.9); White Blood Count 11.9 K/mm3 (4.4-11.0)
[2019-04-13] MEDS: Senna/Docusate Sodium 1 Tablet PO (05:42)
--- NOTE | 2019-04-13 08:07 | PCM.PN.OB ---
Subjective: pt seen at bedside, doing well. pt reports good pain control. lochia mild. Denies N/V, CP, SOB, dizziness. Voiding w/o difficulty. Passing flatus. Breast feeding. - Physical Exam Vitals/I&O's: Vital Signs Temp Pulse Resp BP Pulse Ox 96.4 F L 71 18 104/59 L 97 04/13/19 04:13 04/13/19 05:55 04/13/19 05:55 04/13/19 04:13 04/13/19 05:55 Oxygen Delivery Method Room Air Weight: 105.744 kg Body Mass Index (BMI) 40.0 Finger Stick Blood Glucose 82 Intake and Output for Last 24 Hours 04/11/19 04/12/19 04/13/19 23:59 23:59 23:59 Intake Total 3709.17 / 3709.17 1500 / 1500 Output Total 1500 / 1500 200 / 200 Balance 2209.17 / 2209.17 1300 / 1300 General: Alert, Oriented x3 Abdomen: Soft, Non-Distended, - - fundus firm. Dressing dry and intact Extremities: No Calf Tenderness Laboratory Results 04/13/19 04:35: WBC 11.9 H, RBC 3.40 L, Hgb 9.7 L, Hct 29.4 L, MCV 86.5, MCH 28.5, MCHC 33.0, RDW Std Deviation 42.7, RDW Coeff of Aram 13.8, Plt Count 228, MPV 9.8 Current Medications Acetaminophen (Tylenol) 1,000 mg PO Q8H PRN PRN Reason: Pain Score 1-3/10 Last Admin: 04/12/19 15:28 Dose: 1,000 mg Documented by: Bisacodyl (Dulcolax) 10 mg RECTAL UD PRN PRN Reason: If no BM Diphenhydramine HCl (Benadryl) 25 mg PO Q6H PRN PRN PRN Reason: ITCHING Stop: 04/13/19 09:30 Enoxaparin Sodium (Lovenox) 40 mg SC DAILY [facility] Last Admin: 04/12/19 20:05 Dose: 40 mg Documented by: Hydrocortisone (Hytone) 1 applic TOPICAL TID PRN PRN; Protocol PRN Reason: Discomfort Hydromorphone HCl (Dilaudid Inj) 1 mg IV Q2H PRN PRN PRN Reason: Pain Score 1-10/10 Last Admin: 04/12/19 17:22 Dose: 1 mg Documented by: Naloxone HCl 4 mg/ Dextrose 504 mls @ 0 mls/hr IV .Q0M PRN; Protocol PRN Reason: Respiratory depression Ibuprofen (Motrin) 600 mg PO Q6H PRN PRN PRN Reason: Pain Score 1-3/10 Ketorolac Tromethamine (Toradol (Bkc)) 30 mg IV Q6H KARIE Stop: 04/14/19 08:01 Last Admin: 04/13/19 07:51 Dose: 30 mg Documented by: Methylergonovine Maleate (Methergine) 0.2 mg IM X1 PRN PRN Reason: Uterine Atony Nalbuphine HCl (Nubain) 5 mg IV Q3H PRN PRN PRN Reason: ITCHING Stop: 04/13/19 09:30 Naloxone HCl (Narcan) 0.02 mg IV Q1M PRN PRN Reason: RR <10 and pt unresponsive Ondansetron HCl (Zofran) 4 mg IV Q4H PRN PRN PRN Reason: Nausea Oxycodone HCl (Oxyir) 5 - 10 mg PO Q4H PRN PRN PRN Reason: Pain Score 4-10/10 Prochlorperazine Edisylate (Compazine Iv) 10 mg IV Q6H PRN PRN PRN Reason: NAUSEA Senna/Docusate Sodium (Senokot-S, Valeria-Colace) 0 tablet PO DAILY PRN PRN Reason: Constipation Last Admin: 04/13/19 05:42 Dose: 2 tablet Documented by: Simethicone (Mylicon) 80 mg PO PCHS PRN PRN Reason: Indigestion/stomach pain Sodium Chloride () 5 - 15 ml IV UD PRN PRN Reason: SALINE FLUSH Last Admin: 04/13/19 07:52 Dose: 10 ml Documented by: Medical Necessity - Tobacco Use Smoking Status: Never smoker Assessment/Plan All Active Problems Obesity affecting in third trimester (Acute) IUGR (intrauterine growth restriction) affecting care of mother (Acute) POD#1, doing well routine care pain mgmt ambulation
[2019-04-13] MEDS: oxyCODONE 5 MG Tablet PO ×3 (09:28→22:27)
[2019-04-13] MEDS: Enoxaparin 40 MG/0.4 ML Syringe SC (11:12)
[2019-04-13] MEDS: Ibuprofen 600 MG Tablet PO (21:31)
[2019-04-14 01:34] VITALS: BP 93/48; PULSE 98; RESP 14; TEMP 36.9
[2019-04-14 03:03] VITALS: BP 108/60; PULSE 69; RESP 18
[2019-04-14] MEDS: Ibuprofen 600 MG Tablet PO (05:08)
--- NOTE | 2019-04-14 08:25 | PCM.PN.OB ---
Subjective: Pt doing well. Pain controlled. Ambulating without lightheadedness or dizziness. Voiding without difficulty. Denies CP, SOB, N/V, leg pain. Lochia normal. She desires to go home today. - Physical Exam Vitals/I&O's: Vital Signs Temp Pulse Resp BP Pulse Ox 98.4 F 69 18 108/60 98 04/14/19 01:34 04/14/19 03:03 04/14/19 03:03 04/14/19 03:03 04/13/19 08:00 Oxygen Delivery Method Room Air Weight: 233 lb 2 oz Body Mass Index (BMI) 40.0 Finger Stick Blood Glucose 82 Intake and Output for Last 24 Hours 04/12/19 04/13/19 04/14/19 23:59 23:59 23:59 Intake Total 3709.17 / 3709.17 1500 / 1500 Output Total 1500 / 1500 200 / 200 Balance 2209.17 / 2209.17 1300 / 1300 General: Alert, No apparent distress HEENT: Atraumatic Abdomen: Soft, - - ATTP, obese, dressing c/d/i Extremities: No edema, No Calf Tenderness Skin: No rashes Neurological: Neuro grossly intact Psych/Mental Status: Normal Affect, Appropriate Current Medications Acetaminophen (Tylenol) 1,000 mg PO Q8H PRN PRN Reason: Pain Score 1-05/09 Last Admin: 04/12/19 15:28 Dose: 1,000 mg Documented by: Bisacodyl (Dulcolax) 10 mg RECTAL UD PRN PRN Reason: If no BM Enoxaparin Sodium (Lovenox) 40 mg SC DAILY [facility] Last Admin: 04/13/19 11:12 Dose: 40 mg Documented by: Hydrocortisone (Hytone) 1 applic TOPICAL TID PRN PRN; Protocol PRN Reason: Discomfort Hydromorphone HCl (Dilaudid Inj) 1 mg IV Q2H PRN PRN PRN Reason: Pain Score 1-12/09 Last Admin: 04/12/19 17:22 Dose: 1 mg Documented by: Naloxone HCl 4 mg/ Dextrose 504 mls @ 0 mls/hr IV .Q0M PRN; Protocol PRN Reason: Respiratory depression Ibuprofen (Motrin) 600 mg PO Q6H PRN PRN PRN Reason: Pain Score 1-05/09 Last Admin: 04/14/19 05:08 Dose: 600 mg Documented by: Methylergonovine Maleate (Methergine) 0.2 mg IM X1 PRN PRN Reason: Uterine Atony Naloxone HCl (Narcan) 0.02 mg IV Q1M PRN PRN Reason: RR <10 and pt unresponsive Ondansetron HCl (Zofran) 4 mg IV Q4H PRN PRN PRN Reason: Nausea Oxycodone HCl (Oxyir) 5 - 10 mg PO Q4H PRN PRN PRN Reason: Pain Score 4-10/10 Last Admin: 04/13/19 22:27 Dose: 5 mg Documented by: Prochlorperazine Edisylate (Compazine Iv) 10 mg IV Q6H PRN PRN PRN Reason: NAUSEA Senna/Docusate Sodium (Senokot-S, Valeria-Colace) 0 tablet PO DAILY PRN PRN Reason: Constipation Last Admin: 04/13/19 05:42 Dose: 2 tablet Documented by: Simethicone (Mylicon) 80 mg PO PCHS PRN PRN Reason: Indigestion/stomach pain Sodium Chloride () 5 - 15 ml IV UD PRN PRN Reason: SALINE FLUSH Last Admin: 04/13/19 14:07 Dose: 10 ml Documented by: Medical Necessity - Tobacco Use Smoking Status: Never smoker Assessment/Plan All Active Problems Obesity affecting in third trimester (Acute) IUGR (intrauterine growth restriction) affecting care of mother (Acute) POD#2 s/p C/S - pt doing well and desires to go home today - dispo: d/c home w/ f/u in 1 wk
[2019-04-14] MEDS: oxyCODONE 5 MG Tablet PO (08:35)
[2019-04-14] MEDS: Senna/Docusate Sodium 1 Tablet PO (08:36)
--- NOTE | 2019-04-14 08:42 | DCINST_ITS ---
Discharge Diet: No Restrictions Discharge Activity: May not drive while taking narcotic pain medications., May Shower May resume sexual activity in: 6 weeks Ice area for (Minutes): 15 Weight Bearing Status: Weight bearing as tolerated Lifting Restrictions: No lifting greater than 15-20 lbs Call your doctor if your incision/area has: Sudden Increased Bleeding, Increased Pain/ Swelling, Increased Redness, Foul Smelling Discharge, Swelling at the incision site Call your doctor if you observe: Fever of 101 or Higher, Inability to urinate, Inability to have a bowel movement, Using more than one pad per hour, Shortness of breath, Dizziness, Chest pain, Increased palpitations (irregular heartbeat), Calf discomfort, Uncontrolled pain Suture Line Care: Avoid Pulling/Pushing, Avoid Pinching/Bending Remove Dressing in (days):: 7 - 1 week after surgery Cleanse incision/area with: Soap & Water Additional Instructions: If you experience any of the following, contact your healthcare provider. * Bleeding that soaks a pad every hour for 2 hours * Fever 100.4 or higher * Unrelieved incision or abdominal pain * Swelling, redness, discharge or bleeding from your incision or episiotomy site * Your incision begins to separate * Problems urinating (including inability to urinate or burning while urinating). * Visual changes * Severe headache * Flu-like symptoms * Pain or redness in one of both of your breasts * Pain, warmth, tenderness or swelling in your legs, especially the calf area * Frequent nausea and vomiting * Symptoms of depression or anxiety If you experience any of the following, call 911 or go to the nearest Emergency Room. * Chest pain * Problems breathing * Seizure activity * Partial or complete paralysis of a body part, slurred speech, weakness or drooping of the face, or a sudden inability to walk or hold your balance Allergies/Adverse Reactions: Allergies shellfish derived Allergy (Verified 04/12/19 05:32) Nausea/Vom/Diarrhea Medications to take at Discharge Vits [Prenatabs FA ] 1 tablet PO DAILY 04/29/17 Ondansetron HCl [Zofran] 4 mg PO 09/30/18 Oxycodone HCl/Acetaminophen [Percocet 5/325] 1 tab PO Q6H PRN PRN 7 Days #28 tab 04/14/19 The following prescriptions were given: Oxycodone HCl/Acetaminophen [Percocet 5/325] 1 tab PO Q6H PRN PRN 7 Days #28 tab PRN Reason: Pain Score 6-10/10 Transmission Status: Received by [id number] Follow-Up: Call to make an appointment with your doctor for an incision check in 1-2 weeks. You will also need a 6 week post- follow up appointment. Test results from this visit will be discussed in further detail at your follow- up appointment, if applicable. Please Follow Up With: Karen Looney When: 1 week for incision check and 6 weeks for Primary Care Physician: Care Physician,No Primary [Primary Care Provider] -
[2019-04-14 08:46] VITALS: BP 115/52; PULSE 78; RESP 24; TEMP 36.6
[2019-04-14] MEDS: Enoxaparin 40 MG/0.4 ML Syringe SC (10:46)
[2019-04-14 15:10] LABS: Pathology Specimen OB SEE PATHOLOGY REPORT
== END 2019-04-14 12:00 | disposition home or self-care (01) | DRG 785 ==
PROVIDERS: Admitting Provider Obstetrics & Gynecology; Referring Provider Obstetrics & Gynecology; Visit Provider Obstetrics & Gynecology
PROC: 10D00Z1 Extraction of Products of Conception, Low, Open Approach (ICD-10-PCS; CPT 59514; principal; 2019-04-12 07:15)
DX: O34.211 Maternal care for low transverse scar from previous cesarean delivery (principal); O99.214 Obesity complicating childbirth; O36.5930 Maternal care for other known or suspected poor fetal growth, third trimester, not applicable or unspecified; Z30.2 Encounter for sterilization; Z37.0 Single live birth; Z3A.39 39 weeks gestation of pregnancy
CPT/HCPCS: 85025; 85027; 86850; 86900; 86901; 88302; 99218; J7120; A4216; G0378; J2405